=== PATIENT | female | born 1980 | race Hispanic/Latino ===

== ENCOUNTER → 2017-05-05 | Outpatient (CLI) | payer OTHER ==
--- NOTE | 2017-05-05 13:47 | REP ---
HYSTEROSONOGRAPHY: 05/05/2017. CLINICAL HISTORY: Recurrent cervical polyps, heavy vaginal bleeding and discomfort. TECHNIQUE: Examination performed with endocervical cannulation by Dr. Hanson of the gynecology division. Endovaginal probe placed by the technologist. I was not present for the procedure. FINDINGS: Review of the images demonstrates uterus anteverted and measuring 10.8 x 5.4 x 6.6 cm. Endometrial stripe has a thickness of 15.7 mm and is heterogeneous. With injection of saline a total of 20 mL during this examination. There are numerous polyps on the anterior and posterior margins of the endometrial cavity. They have a lobulated rounded appearance and are mixed echogenicity. The myometrium is unremarkable. No fluid in the endometrial cavity. The lower uterine segment did not show these findings in the endocervical canal intact. IMPRESSION: 1. During the hysterosonogram, a demonstration of numerous polyps anterior and posterior margins of the endometrial cavity in the body and fundus of the uterus without involvement of the lower uterine segment. The myometrium appear grossly homogeneous without discrete mass or contour abnormality and there is no fluid in the cul-de-sac. Signed by Kolton Quezada MD 05/06/2017 07:47 P
== END ==
LOC: M RADPRO 11:51
PROVIDERS: ATTEND Obstetrics & Gynecology
DX: N92.4 Excessive bleeding in the premenopausal period (principal); Z87.42 Personal history of other diseases of the female genital tract

== ENCOUNTER 2017-06-10 07:30 | Day surgery (SDC) | payer OTHER ==
[2017-06-10 07:53] LABS: HEMATOCRIT 39.5 % (36.0-47.0); HEMOGLOBIN 13.3 g/dl (12.0-16.0); MEAN CORPUSCULAR HEMOGLOBIN 30.3 pg (27.0-33.0); MEAN CORPUSCULAR HGB CONC 33.7 g/dl (32.0-36.5); PLATELET COUNT, AUTOMATED 208 10^3/uL (150-450); RED BLOOD COUNT 4.39 10^6/uL (4.00-5.40); RED CELL DISTRIBUTION WIDTH 13.5 % (11.5-14.5); WHITE BLOOD COUNT 9.3 10^3/uL (4.0-10.0)
[2017-06-10] MEDS ORDERED: PROPOFOL 200 MG/20 ML VIAL As Ordered (08:01)
[2017-06-10] MEDS ORDERED: MIDAZOLAM INJ 2 MG/2 ML VIAL (J2250) As Ordered (08:01)
[2017-06-10] MEDS ORDERED: fentaNYL 100 MCG/2 ML INJECTION (J3010) As Ordered (08:01)
[2017-06-10] MEDS ORDERED: LIDOCAINE 2% INJ 100 MG/5 ML SDV (FOR ANES.) As Ordered (08:01)
[2017-06-10] MEDS: LR 1,000 ML IV (08:08)
[2017-06-10 08:13] LABS: HCG, SERUM QUANTITATIVE < 1.0 MIU/ML
[2017-06-10] MEDS ORDERED: ONDANSETRON 4MG/2ML VIAL (J2405) As Ordered (08:35)
[2017-06-10] MEDS ORDERED: dexameTHASONE 4 MG/ML 1ML VIAL (J1100) As Ordered (08:35)
[2017-06-10] MEDS: SILVER NITRATE APPLICATOR As Ordered (09:03)
[2017-06-10] MEDS ORDERED: LR 1,000 ML IV (09:45)
[2017-06-10] MEDS ORDERED: fentaNYL 100 MCG/2 ML INJECTION (J3010) IV (09:45)
[2017-06-10] MEDS: KETOROLAC 30 MG/ML VIAL (J1885) IV (09:45)
[2017-06-10] MEDS ORDERED: ONDANSETRON 4MG/2ML VIAL (J2405) IV (09:45)
[2017-06-10] MEDS: NORCO, ANEXSIA 5/325MG TABLET (HYDROcodone/ACETAMINOPHEN) PO (09:56)
== END 2017-06-10 12:08 | disposition home or self-care (01) ==
LOC: M SDC 07:30
DX: N84.0 Polyp of corpus uteri (principal); M12.9 Arthropathy, unspecified; G47.9 Sleep disorder, unspecified; Z87.81 Personal history of (healed) traumatic fracture
CPT/HCPCS: 58558

== ENCOUNTER 2017-06-16 11:58 | Emergency (ER) | payer OTHER ==
[2017-06-16 14:21] LABS: KETONE, URINE AUTO RFX NEGATIVE (NEGATIVE); MUCUS, URINE RFX SMALL (NEGATIVE); NITRITE, URINE AUTO RFX NEGATIVE (NEGATIVE); RBC, URINE AUTO RFX TNTC /HPF (0-3); SPECIFIC GRAVITY UR AUTO RFX 1.008 (1.002-1.035); SQUAM EPITHELIAL CELL UR AURFX 1 /HPF (0-6); WBC, URINE AUTO RFX 5 /HPF (0-3)
[2017-06-16 14:22] LABS: BASO # 0.1 10^3/uL (0.0-0.2); BASO % 0.8 % (0.0-1.0); EOS # 0.1 10^3/uL (0.0-0.50); EOS % 1.4 % (0.0-3.0); HEMATOCRIT 40.7 % (36.0-47.0); HEMOGLOBIN 13.6 g/dl (12.0-16.0); IMMATURE GRANULOCYTE % 0.3 % (0-0); LYMPH # 1.9 10^3/uL (1.5-4.5); LYMPH % 22.1 % (24.0-44.0); MEAN CORPUSCULAR HEMOGLOBIN 30.2 pg (27.0-33.0); MEAN CORPUSCULAR HGB CONC 33.4 g/dl (32.0-36.5); MEAN CORPUSCULAR VOLUME 90.4 fl (80.0-96.0); MONO # 1.1 10^3/uL (0.0-0.8); MONO % 12.3 % (0.0-5.0); NEUTROPHILS # 5.5 10^3/uL (1.8-7.7); NEUTROPHILS % 63.1 % (36.0-66.0); PLATELET COUNT, AUTOMATED 209 10^3/uL (150-450); RED CELL DISTRIBUTION WIDTH 13.4 % (11.5-14.5); WHITE BLOOD COUNT 8.8 10^3/uL (4.0-10.0)
[2017-06-16 14:23] LABS: LEUKOCYTE ESTERASE UR AUTO RFX TRACE (NEGATIVE)
[2017-06-16 14:28] LABS: CONTROL LINE HCG INT CTR LINE PRESENT; HCG, SERUM QUALITATIVE NEGATIVE (NEGATIVE); INR 0.97
[2017-06-16 14:29] LABS: PARTIAL THROMBOPLASTIN TIME 25.8 SECONDS (26.8-37.9)
[2017-06-16 14:35] LABS: ALBUMIN 3.5 GM/DL (3.2-5.2); ALBUMIN/GLOBULIN RATIO 0.78 (1.00-1.93); ALKALINE PHOSPHATASE 110 U/L (45-117); ALT/SGPT 28 U/L (12-78); ANION GAP 5 MEQ/L (8-16); AST/SGOT 21 U/L (7-37); BILIRUBIN,TOTAL 0.2 MG/DL (0.2-1.0); BLOOD UREA NITROGEN 11 MG/DL (7-18); CALCIUM LEVEL 8.8 MG/DL (8.5-10.1); CARBON DIOXIDE LEVEL 29 MEQ/L (21-32); CHLORIDE LEVEL 105 MEQ/L (98-107); CREATININE FOR GFR 0.76 MG/DL (0.55-1.02); GLOMERULAR FILTRATION RATE > 60.0 (>60); GLUCOSE, FASTING 97 MG/DL (70-105); SODIUM LEVEL 139 MEQ/L (136-145)
== END 2017-06-16 16:46 | disposition home or self-care (01) ==
LOC: M ED 11:58
DX: N92.0 Excessive and frequent menstruation with regular cycle (principal); N93.8 Other specified abnormal uterine and vaginal bleeding; Z79.899 Other long term (current) drug therapy; Z98.890 Other specified postprocedural states
CPT/HCPCS: 76856